=== PATIENT | female | born 1970 | race Caucasian/White ===

== ENCOUNTER 2022-01-14 16:10 | Emergency (ER) | payer OTHER ==
[~2022-01-14] VITALS: Ht 160 cm; Wt 140.2 kg
[2022-01-14] MEDS ORDERED: LANTUS SOL100 UNIT/1 SUB-Q (16:40)
[2022-01-14] MEDS ORDERED: OZEMPIC0.25 MG/0. SQ (16:40)
[2022-01-14] MEDS ORDERED: NOVOLIN N100 UNIT/2 SQ (16:41)
[2022-01-14] MEDS ORDERED: METFORMIN HCL500 M2 PO (16:41)
[2022-01-14] MEDS ORDERED: NAPROSYN500 MG PO (17:16)
== END 2022-01-14 17:54 | disposition home or self-care (01) ==
LOC: ED 16:10
DX: M65.9 Synovitis and tenosynovitis, unspecified (principal); E11.9 Type 2 diabetes mellitus without complications; E03.9 Hypothyroidism, unspecified; I10 Essential (primary) hypertension; E78.5 Hyperlipidemia, unspecified; Z88.0 Allergy status to penicillin; Z79.899 Other long term (current) drug therapy; Z79.4 Long term (current) use of insulin; Z79.84 Long term (current) use of oral hypoglycemic drugs
CPT/HCPCS: 99283

== ENCOUNTER 2022-09-12 13:57 | Emergency (ER) | payer OTHER ==
[~2022-09-12] VITALS: Ht 160 cm; Wt 128.2 kg
[~2022-09-12 13:57] MED LIST: LANTUS SOL100 UNIT/1 SUB-Q; METFORMIN HCL500 M2 PO; NAPROSYN500 MG PO; NOVOLIN N100 UNIT/2 SQ; OZEMPIC0.25 MG/0. SQ
== END 2022-09-12 16:43 | disposition home or self-care (01) ==
LOC: ED 13:57
DX: S09.90XA Unspecified injury of head, initial encounter (principal); S63.502A Unspecified sprain of left wrist, initial encounter; M54.9 Dorsalgia, unspecified; I10 Essential (primary) hypertension; E11.9 Type 2 diabetes mellitus without complications; E03.9 Hypothyroidism, unspecified; E78.5 Hyperlipidemia, unspecified; Z88.0 Allergy status to penicillin; Z79.899 Other long term (current) drug therapy; Z79.4 Long term (current) use of insulin; W00.0XXA Fall on same level due to ice and snow, initial encounter
CPT/HCPCS: 99283; A9270

== ENCOUNTER 2023-07-28 07:00 | Day surgery (SDC) | payer OTHER ==
[2023-07-26 08:29] VITALS: BP 139/95
[~2023-07-28] VITALS: Ht 160 cm; Wt 125.5 kg
[~2023-07-28 07:00] MED LIST changes: +ASPIRIN REGIMEN81 MG PO; +CLARITIN10 M2 PO; +D3 DOTS50 MCG PO; +FENOFIBRATE160 MG PO; +FOLIC ACID1 MG PO; +HYDROCHLOROTH12.5 MG PO; +LEVOTHYROXINE150 MC1 PO; +LIPITOR40 MG PO; +LISINOPRIL20 MG PO; +MULTI VITAMIN1 EACH PO; +NOVOLIN R100 UNIT/1 INJ; +OMEGA 3 1,0001 EACH PO; +PROZAC20 MG PO
[2023-07-28 07:14] VITALS: BP 126/74
--- NOTE | 2023-07-28 08:58 | NUR ---
07/28/23 0858 David Montero PATIENT ARRIVED AT 0839. PATIENT HAS O2 MASK IN PLACE AT 6L AND STAT IS 97%. PATIENT IS OPENING HER EYES AND NODDING WHEN ASKED QUESTIONS. 0842 PATIENT IS TALING AND ENCOURAGED TO DEEP BREATHE. DENIES PAIN AND NAUSEA. 0845 PATIENT ASKED TO BE SAT UP IN BED AND IS HOLDING CONVERSATION. PATIENT SAT IS 96% ON ROOM AIR BUT DRIFTS OFF TO SLEEP WHEN NOT IN ACTIVE CONVERSATION. WHEN ASLEEP O2 SAT DROPS TO 93%. 0850 PATIENT REQUESTED TO BE SAT UP IN BED TO REPOSITION FOR COMFORT. PATIENT REQUESTING WATER AT THIS TIME. O2 SAT IS 94% ON ROOM AIR.
[2023-07-28 09:08] VITALS: BP 115/71
--- NOTE | 2023-07-28 09:43 | OR ---
[facility] [address], [place] [address] Signed DATE OF OPERATION: 07/28/2023 SURGEON: Deepak Méndez MD PREOPERATIVE DIAGNOSES: 1. Mother with a history of colonic polyps. 2. Mother with a history of alcohol consumption, hepatitis C virus and of a GI bleed at age 53. POSTOPERATIVE DIAGNOSES: 1. 4 mm polyp at 25 cm in sigmoid colon. 2. Single small internal anal skin tag. PROCEDURE: Colonoscopy with hot biopsy. ESTIMATED BLOOD LOSS: None. INDICATIONS: Loida is a 53-year-old obese, diabetic female, asked to see me for her initial screening colonoscopy. She told me her mom was an alcoholic and hepatitis C virus. She also had a history of colonic polyps. She from a GI bleed at the age of 54. Most likely that is associated with varices. Loida has no lower GI complaints. She told me with treatment of her diabetes, she has lost over 90 pounds this last year. She says she is feeling much better. In the office, I had given her a pamphlet on colonoscopy. We had looked it at together in detail. She understands there is risk including, but not limited to gas bloating, crampy abdominal pain, bleeding, perforation requiring surgery, and missed diagnosis. We also reviewed the written instructions for her bowel prep line by line. Also because of her body mass index along with her significant past medical history, we asked our anesthesia provider to help us. In that regard, she needed preoperative blood work and an EKG. She had expressed understanding and wished to proceed. PROCEDURE NOTE: Loida was taken into our endoscopy suite and placed in the left lateral decubitus position. She was given monitored anesthesia care with propofol per our nurse hostler helper. A digital rectal exam was performed and this was unremarkable. She had good sphincter tone. There were no external hemorrhoids. There were no masses. The adult colonoscope was introduced and advanced under direct visualization of the camera Electronically Signed By: DEEPAK MÉNDEZ MD 07/28/23 0943 PATIENT NAME: LOIDA BOOGIE OPERATIVE REPORT DATE OF : 72 REPORT #: [id number] PHYSICIAN: DEEPAK MÉNDEZ MD PCP: ROHITH KNIGHT MD REPORT IS CONFIDENTIAL AND NOT TO BE RELEASED WITHOUT AUTHORIZATION [facility] [address] [place], [place] [address] Signed without difficulty. It took just a little extra propofol to get the camera around and into the cecum itself. Her prep was quite excellent. We could easily see the appendiceal orifice and the ileocecal valve. The scope was then slowly withdrawn. We took pictures throughout for photodocumentation. There was no diverticulosis. She had just a tiny 4 mm lesion at 25 cm in her sigmoid colon. It was easily removed and destroyed completely with the hot biopsy forceps. The rectum was unremarkable. Upon retroflexion of the scope, she has just a small single internal anal skin tag. After this, the gas was suctioned out and the colonoscope removed. Loida tolerated her procedure quite well. RECOMMENDATIONS: I will see Loida back in my office in 7 to 14 days to review her results. She will probably need followup every five years due to her mother's history of colonic polyps. Deepak Méndez MD ALB/MODL /[id number] cc: MD Rohith Tong MD Copies: DEEPAK MÉNDEZ MD, JAMES MD ~ Electronically Signed By: DEEPAK MÉNDEZ MD 07/28/23 0943 PATIENT NAME: LOIDA BOOGIE OPERATIVE REPORT DATE OF : 72 REPORT #: [id number] PHYSICIAN: DEEPAK MÉNDEZ MD PCP: ROHITH KNIGHT MD REPORT IS CONFIDENTIAL AND NOT TO BE RELEASED WITHOUT AUTHORIZATION
== END 2023-07-28 09:25 | disposition home or self-care (01) ==
LOC: OPS 07:00 → DS 07:00 → OPS 08:15 → DS 08:15 → OPS 09:25
PROVIDERS: ATTEND Colon & Rectal Surgery
PROC: 0DBN8ZX Excision of Sigmoid Colon, Via Natural or Artificial Opening Endoscopic, Diagnostic (ICD-10-PCS; principal; 2023-07-28 08:15)
DX: Z12.11 Encounter for screening for malignant neoplasm of colon (principal); D12.5 Benign neoplasm of sigmoid colon; K64.8 Other hemorrhoids; E03.9 Hypothyroidism, unspecified; E78.2 Mixed hyperlipidemia; E11.9 Type 2 diabetes mellitus without complications; K21.9 Gastro-esophageal reflux disease without esophagitis; G47.33 Obstructive sleep apnea (adult) (pediatric); Z83.719 Family history of colon polyps, unspecified; Z88.1 Allergy status to other antibiotic agents
CPT/HCPCS: 00811; 88305; J2001; J2704; J7121

== ENCOUNTER 2024-09-05 14:10 | Emergency (ER) | payer OTHER ==
[2024-09-05] MEDS ORDERED: ondansetron HCL 4 MG/2 ML VIAL IV ONE (14:15)
[2024-09-05] MEDS ORDERED: HYDROmorphone HCL 1 MG/ML SYR IV PRN (14:15)
[2024-09-05 14:26] LABS: BASOPHILS 0.8 % (0-2); HEMATOCRIT 39.2 % (35.0-50.0); LYMPHOCYTES 15.7 % (24-44); MCH 28.2 (27-36); MCHC 33.1 g/dl (30-36); MCV 85.2 fl (81-99); MONOCYTES 4.6 % (0-12); NEUTROPHILS 73.9 % (39-80); PLATELET COUNT 403 K/uL (140-440); RDW 14.3 (10.5-15.0)
[2024-09-05 14:41] LABS: ALBUMIN/GLOBULIN RATIO 0.67 (1.1-2.4); ALCOHOL, MEDICAL <3 ng/dL (<3); ALKALINE PHOSPHATASE 87 U/L (46-116); ALT (SGPT) 43 U/L (14-59); ANION GAP 14.2 (7-21); AST (SGOT) 48 U/L (15-37); BILIRUBIN, TOTAL 0.3 ng/dL (0.2-1.0); CALCIUM 9.3 mg/dL (8.5-10.1); CARBON DIOXIDE 29 mmol/L (21-32); CHLORIDE 96 mmol/L (98-107); CREATININE, SERUM 1.24 mg/dL (0.55-1.02); GLOMERULAR FILTRATION RATE,EST 52 mL/min (>60); POTASSIUM 4.2 mmol/L (3.5-5.1); PROTEIN, TOTAL 7.5 g/dL (6.4-8.2); UREA NITROGEN 16 mg/dL (7-18)
[2024-09-05] MEDS ORDERED: TRANEXAMIC ACID IN NACL,ISO-OS 1,000 MG/100 ML PIGGYBACK IV ONE (14:45)
[2024-09-05 15:01] LABS: ABO A; RH POSITIVE
[2024-09-05 15:02] LABS: ANTIBODY SCREEN NEGATIVE
[2024-09-05 15:17] LABS: BILIRUBIN, URINE NEGATIVE (negative); BLOOD/HGB, URINE LARGE (Negative); KETONE, URINE NEGATIVE (Negative); LEUK ESTERASE, URINE NEGATIVE (negative); NITRITE, URINE NEGATIVE (negative)
[2024-09-05] MEDS ORDERED: ONDANSETRON ODT4 MG PO (15:19)
[2024-09-05] MEDS ORDERED: HYDROCODON-ACE1 EA10 PO (15:19)
[2024-09-05 15:25] LABS: BACTERIA, URINE NONE SEEN /hpf (negative); CASTS, URINE NONE SEEN \\lpf; COLLECTION TYPE, URINE CLEAN CATCH; CRYSTALS, URINE NONE SEEN (0-1+); EPITHELIAL CELLS, URINE SQUAMOUS 1+ /lpf (0-1+); REFLEX CULTURE, URINE Yes (No); WHITE BLOOD CELLS, URINE 21-40 /HPF (0-5)
[2024-09-05 15:31] LABS: AMPHETAMINES, URINE NEGATIVE (NEGATIVE); BARBITURATES, URINE NEGATIVE (NEGATIVE); BENZODIAZEPINE, URINE NEGATIVE (NEGATIVE); BUPRENORPHINE, URINE NEGATIVE (NEGATIVE); CANNABINOID, URINE NEGATIVE (NEGATIVE); COCAINE, URINE NEGATIVE (NEGATIVE); ECSTASY, URINE NEGATIVE (NEGATIVE); FENTANYL, URINE NEGATIVE (NEGATIVE); METHADONE, URINE NEGATIVE (NEGATIVE); OPIATES, URINE NEGATIVE (NEGATIVE); OXYCODONE, URINE NEGATIVE (NEGATIVE); PHENCYCLIDINE, URINE NEGATIVE (NEGATIVE)
[2024-09-06 00:12] VITALS: BP 104/51
--- NOTE | 2024-09-06 14:04 | EKG ---
[facility] [place] [facility] [address] [facility] [place], [place] [address] Signed Normal sinus rhythm Possible Anterior infarct (cited on or before 26-JUL-2023) Abnormal ECG When compared with ECG of 26-JUL-2023 09:34, No significant change was found Confirmed by Roseanna Holland MD ([id number]) on 09/06/2024 2:04:44 PM Electronically Signed By: ROSEANNA HOLLAND DO 09/06/24 1404 PATIENT NAME: LOIDA BOOGIE Electrocardiogram DATE OF : 72 PHYSICIAN: ROSEANNA HOLLAND DO REPORT #: [id number] REPORT IS CONFIDENTIAL AND NOT TO BE RELEASED WITHOUT AUTHORIZATION
== END 2024-09-05 17:39 | disposition home or self-care (01) ==
LOC: ED 14:10
PROVIDERS: Emergency Medicine
DX: S20.211A Contusion of right front wall of thorax, initial encounter (principal); V89.2XXA Person injured in unspecified motor-vehicle accident, traffic, initial encounter; E11.9 Type 2 diabetes mellitus without complications; E03.9 Hypothyroidism, unspecified; I10 Essential (primary) hypertension; E78.5 Hyperlipidemia, unspecified; Z88.0 Allergy status to penicillin; Z79.899 Other long term (current) drug therapy; Z79.4 Long term (current) use of insulin; Z79.84 Long term (current) use of oral hypoglycemic drugs; Z79.82 Long term (current) use of aspirin
CPT/HCPCS: 36415; 70450; 71045; 71260; 72125; 74177; 80053; 80307; 81001; 83605; 83690; 84703; 85025; 86850; 86900; 86901; 87088; 93005; 93010; 99284-25; G0480; J1171; J2405; Q9967

== ENCOUNTER 2025-05-06 18:40 | Emergency (ER) | payer OTHER ==
[~2025-05-06] VITALS: Ht 160 cm; Wt 120.0 kg
[~2025-05-06 18:40] MED LIST changes: +HYDROCODON-ACE1 EA10 PO; +ONDANSETRON ODT4 MG PO
[2025-05-06] MEDS ORDERED: NITROFURANTOIN100 MG PO (18:57)
[2025-05-06] MEDS ORDERED: PYRIDIUM200 MG (18:58)
[2025-05-06 19:12] LABS: BLOOD/HGB, URINE SMALL (Negative); KETONE, URINE NEGATIVE (Negative); LEUK ESTERASE, URINE NEGATIVE (negative); NITRITE, URINE POSITIVE (negative)
[2025-05-06 19:25] LABS: EPITHELIAL CELLS, URINE SQUAMOUS 4+ /lpf (0-1+)
[2025-05-06 19:26] LABS: BACTERIA, URINE 1+ /hpf (negative); CASTS, URINE NONE SEEN \\lpf; CRYSTALS, URINE NONE SEEN (0-1+); REFLEX CULTURE, URINE No (No)
[2025-05-06] MEDS ORDERED: VENLAFAXINE112.5 MG PO (19:26)
[2025-05-06 19:37] LABS: BASOPHILS 0.3 % (0.1-1.2); EOSINOPHILS 0 % (0.7-5.8); LYMPHOCYTES 3.6 % (19.3-51.7); MCH 28.2 PG (25.6-32.2); MCHC 33.3 g/dL (32.2-35.5); MCV 84.6 fL (79.4-94.8); MONOCYTES 6.3 % (4.7-12.5); NEUTROPHILS 89.3 % (34.0-71.1); RBC 3.90 M/uL (3.93-5.22)
[2025-05-06 19:45] LABS: INR 1.13 (0.80-1.30); PROTIME 14.1 Sec (11.2-14.2)
[2025-05-06] MEDS ORDERED: SODIUM CHLORIDE 0.9% 1,000 ML IV ONE (19:45)
[2025-05-06 19:47] LABS: ALT (SGPT) 48.0 U/L (14-59); AST (SGOT) 57.0 U/L (15-37); GLOMERULAR FILTRATION RATE,EST 46.0 mL/min (>60); PROTEIN, TOTAL 7.1 g/dL (6.4-8.2); UREA NITROGEN 15.0 mg/dL (7-18)
[2025-05-06 20:13] LABS: LACTIC ACID, BLOOD 2.0 mmol/L (0.4-2.0)
[2025-05-06] MEDS ORDERED: CEPHALEXIN MONOHYDRATE 500 MG HOME.PACK PO ONE (21:30)
[2025-05-06] MEDS ORDERED: FLUCONAZOLE150 MG PO (21:33)
[2025-05-06] MEDS ORDERED: CEPHALEXIN500 MG PO (21:33)
[2025-05-06] MEDS ORDERED: FLUCONAZOLE 150 MG TAB PO ONE (21:45)
[2025-05-06] MEDS ORDERED: POTASSIUM CHLORIDE 10 MEQ TABCR PO ONE (21:45)
[2025-05-06 21:58] VITALS: BP 101/66
--- NOTE | 2025-05-09 00:40 | NUR ---
RECEIVED CALL FROM LAB WITH REPORT OF POSTIVE BLOOD CULTURES FOLLOWS: ANAEROBIC BOTTLE ONLY POSITIVE FOR GRAM NEGATIVE RODS. UPDATED
== END 2025-05-06 21:58 | disposition home or self-care (01) ==
LOC: ED 18:40
PROVIDERS: Emergency Medicine; Internal Medicine
DX: N39.0 Urinary tract infection, site not specified (principal); E11.9 Type 2 diabetes mellitus without complications; E03.9 Hypothyroidism, unspecified; I10 Essential (primary) hypertension; E78.5 Hyperlipidemia, unspecified; Z79.82 Long term (current) use of aspirin; Z79.4 Long term (current) use of insulin; Z79.84 Long term (current) use of oral hypoglycemic drugs; Z79.899 Other long term (current) drug therapy; Z88.0 Allergy status to penicillin
CPT/HCPCS: 36415; 71045; 74177; 80053; 81001; 83605; 85025; 85610; 85730; 87088; 96365; 96375; 99284-25; A9270; J0696; J2405; J7030; Q9967

== ENCOUNTER 2025-05-10 17:12 | Emergency (ER) | payer OTHER ==
[~2025-05-10] VITALS: Ht 160 cm; Wt 120.2 kg
[~2025-05-10 17:12] MED LIST changes: +CEPHALEXIN500 MG PO; +FLUCONAZOLE150 MG PO; +NITROFURANTOIN100 MG PO; +PYRIDIUM200 MG; +VENLAFAXINE112.5 MG PO
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
[2025-05-10] MEDS ORDERED: BACTRIM DS TAB1 EACH PO (20:56)
[2025-05-10] MEDS ORDERED: TRIMETHOPRIM/SULFAMETHOXAZOLE 1 EA HOME.PACK PO ONE (21:00)
[2025-05-10 21:16] VITALS: BP 124/80
[2025-05-10 21:19] LABS: BLOOD/HGB, URINE NEGATIVE (Negative); KETONE, URINE NEGATIVE (Negative); LEUK ESTERASE, URINE NEGATIVE (negative); NITRITE, URINE NEGATIVE (negative)
== END 2025-05-10 21:17 | disposition home or self-care (01) ==
LOC: ED 17:12
PROVIDERS: Internal Medicine
DX: N39.0 Urinary tract infection, site not specified (principal); E11.9 Type 2 diabetes mellitus without complications; E03.9 Hypothyroidism, unspecified; I10 Essential (primary) hypertension; E78.5 Hyperlipidemia, unspecified; F32.A Depression, unspecified; F41.9 Anxiety disorder, unspecified; Z88.1 Allergy status to other antibiotic agents; Z79.899 Other long term (current) drug therapy; Z79.85 Long-term (current) use of injectable non-insulin antidiabetic drugs; Z79.4 Long term (current) use of insulin; Z79.82 Long term (current) use of aspirin
CPT/HCPCS: 81003; 99283; A9270